=== PATIENT | male | born 1940 | race Caucasian/White ===

== ENCOUNTER 2019-02-23 05:26 | Inpatient (IN) | payer OTHER ==
[2019-02-23] MEDS ORDERED: GABAPENTIN 300 MG CAP PO ONE (05:41)
[2019-02-23] MEDS ORDERED: ACETAMINOPHEN 500 MG TAB PO ONE (05:41)
[2019-02-23] MEDS ORDERED: ceFAZolin 2 GM/DEXTROSE 100 ML IV ONE (05:41)
[2019-02-23] MEDS ORDERED: LIDOCAINE 1% 2 ML INJ ID PRN (05:43)
[2019-02-23] MEDS ORDERED: LR 1,000 ML IV ONE (05:43)
[2019-02-23] MEDS ORDERED: LIDOCAINE 1% 2 ML INJ ONE (05:54)
[2019-02-23] MEDS ORDERED: THROMBIN (BOVINE) 20,000 UNIT VIAL TP ONE (06:42)
[2019-02-23] MEDS ORDERED: BUPIVACAINE/EPI 0.25% 30 ML SDV ONE (06:42)
[2019-02-23] MEDS ORDERED: CITRATE DEXTROSE SOLN 500 ML BAG ONE (06:42)
[2019-02-23] MEDS ORDERED: BACITRACIN 50,000 UNITS/10 ML SYR IRR ONE (06:42)
[2019-02-23] MEDS ORDERED: CHLORHEXIDINE GLUC HIBICLENS 118 ML BTL TP ONE (06:42)
--- NOTE | 2019-02-23 06:50 | PDHPUP ---
History & Physical Update H&P update statement: This history and physical update is based on an assessment of the patient which was completed after admission or registration (within 24 hours), but prior to the surgery/procedure. H&P update: H&P reviewed & patient examined, no change in patient's condition since H&P completed (Consents signed and site marked. All questions answered.)
[2019-02-23] MEDS ORDERED: ALBUMIN 5% 250 ML BOTTLE IV ONE (07:03)
[2019-02-23] MEDS ORDERED: ALBUTEROL 3 ML DEYVIAL ONE (07:21)
[2019-02-23] MEDS ORDERED: DEXMEDETOMIDINE HCL 400 MCG in NS 100 ML IV SCH (07:30)
[2019-02-23] MEDS ORDERED: fentaNYL 250 MCG/5 ML INJ ONE (07:38)
[2019-02-23] MEDS ORDERED: PROPOFOL/EMULSION 500 MG/50 ML BOTTLE IV ONE ×2 (07:40→08:28)
[2019-02-23] MEDS ORDERED: MIDAZOLAM 2 MG/2 ML VIAL ONE (07:41)
[2019-02-23] MEDS ORDERED: LACTULOSE 20 GM/30 ML UDCUP PO PRN (08:11)
[2019-02-23] MEDS ORDERED: BISACODYL 10 MG SUPP PR PRN (08:11)
[2019-02-23] MEDS ORDERED: MAGNESIUM HYDROXIDE 30 ML UDCUP PO PRN (08:11)
[2019-02-23] MEDS ORDERED: diphenhydrAMINE 25 MG CAP PO PRN (08:11)
[2019-02-23] MEDS ORDERED: ONDANSETRON DISINTEGRATING 4 MG TAB PO PRN (08:11)
[2019-02-23] MEDS ORDERED: ONDANSETRON 4 MG/2 ML VIAL IVP PRN ×2 (08:11→09:12)
[2019-02-23] MEDS ORDERED: POLYETHYLENE GLYCOL 3350 17 GM PKT PO PRN (08:11)
[2019-02-23] MEDS ORDERED: ALBUTEROL 60 PUFFS/8 GM MDI IH PRN (08:15)
[2019-02-23] MEDS ORDERED: NS 1,000 ML IV SCH (08:15)
--- NOTE | 2019-02-23 08:34 | PDANEPAE ---
ANE Past Medical History - Cardiovascular History Hx Hypertension: Yes Hx Arrhythmias: No Hx Chest Pain: No Hx Coronary Artery / Peripheral Vascular Disease: No Hx CHF / Valvular Disease: No Hx Palpitations: No - Pulmonary History Hx COPD: No Hx Asthma/Reactive Airway Disease: Yes Hx Recent Upper Respiratory Infection: No Hx Oxygen in Use at Home: No Hx Sleep Apnea: No Sleep Apnea Screening Result - Last Documented: Positive Pulmonary History Comment: Asthma. 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 - Cancer History Hx Cancer: No - Congenital Disorder History Hx Congenital Disorders: No - GI History Hx Gastrointestinal Disorders: Yes Gastrointestinal History Comment: GERD. - Other Health History Other Health History: Bilateral cataract surgery. DDD lumbar spine. Osteoarthrits. Carpal tunnel syndrome. Easy bruising since on plavix. - Chronic Pain History Chronic Pain: Yes - Surgical History Prior Surgeries: R shoulder replacement 2009. L knee replacement 2008. Umbilical hernia repair ~. L carpal tunnel surgery ~. L foot nerve surgery ~ ANE Review of Systems Review of Systems: - Exercise capacity METS (RN): 4 METS ANE Patient History - Allergies Allergies/Adverse Reactions: No Known Allergies Allergy (Verified 02/12/19 10:45) - Home Medications Home Medications: Acetaminophen [Tylenol ES 500 mg (*)] 1,000 mg PO BID@09,14 02/12/19 [Last Taken 02/22/19] Acetaminophen [Tylenol ES 500 mg (*)] 500 mg PO HS 02/12/19 [Last Taken 02/21/19 ] Albuterol [Proventil Inhaler HFA (*)] 1 - 2 puffs IH Q4H PRN 02/12/19 [Last Taken 02/16/19] Atorvastatin Calcium [Lipitor 10 mg (*)] 5 mg PO DAILY 02/12/19 [Last Taken 04:15] Benazepril HCl [Lotensin (*)] 20 mg PO DAILY 02/12/19 [Last Taken 02/22/19] Clopidogrel Bisulfate [Plavix (*)] 75 mg PO DAILY 02/12/19 [Last Taken 02/14/19] Fluticasone Hfa 220 Mcg [Flovent 220 MCG Hfa MDI (*)] 1 puffs IH DAILY 02/12/19 [Last Taken 02/23/19 04:30] Gabapentin [Neurontin 300 MG (*)] 300 mg PO HS 02/12/19 [Last Taken 02/21/19] Gabapentin [Neurontin 300 MG (*)] 600 mg PO DAILY14 02/12/19 [Last Taken ] Gabapentin [Neurontin 300 MG (*)] 900 mg PO DAILY 02/12/19 [Last Taken 02/23/19 04:15] Herbals/Supplements -Info Only 1 ea PO DAILY 02/12/19 [Last Taken 02/16/19] Pantoprazole Sodium [Protonix 40mg (*)] 40 mg PO DAILY 02/12/19 [Last Taken 04:15] - NPO status NPO Since - Liquids (Date): 02/22/19 NPO Since - Liquids (Time): 22:00 NPO Since - Solids (Date): 02/22/19 NPO Since - Solids (Time): 22:00 - Smoking Hx Smoking Status: Former smoker - Family Anes Hx Family Hx Anesthesia Complications: None. ANE Labs/Vital Signs - Vital Signs Blood Pressure: 133/84 Heart Rate: 75 Respiratory Rate: 11 O2 Sat (%): 94 Height: 165.1 cm Weight: 85.275 kg ANE Physical Exam - Airway Neck exam: FROM Mallampati Score: Class 2 Mouth exam: normal dental/mouth exam - Pulmonary Pulmonary: reduced air movement, expiratory wheeze - Cardiovascular Cardiovascular: regular rate and rhythym, no murmur, rub, or gallop - ASA Status ASA Status: III ANE Anesthesia Plan Anesthesia Plan: general endotracheal anesthesia Lines/Monitors: arterial line, additional IV Total IV Anesthesia: Yes
--- NOTE | 2019-02-23 08:34 | CPEKG ---
Test Reason : OPEN Blood Pressure : / mmHG Vent. Rate : 065 BPM Atrial Rate : 065 BPM P-R Int : 190 ms QRS Dur : 085 ms QT Int : 395 ms P-R-T Axes : 074 053 120 degrees QTc Int : 411 ms Sinus rhythm Nonspecific T abnormalities, lateral leads Confirmed by Artie Guthrie ([id number]) on 02/23/2019 8:33:18 AM Referred By: Lei Salgado Confirmed By:Artie Guthrie
[2019-02-23] MEDS ORDERED: LIDOCAINE 2% 5 ML SDV ONE (08:55)
[2019-02-23] MEDS ORDERED: SUCCINYLCHOLINE CHLORIDE 200 MG/10 ML SYR IVP ONE (08:55)
[2019-02-23] MEDS ORDERED: PHENYLEPHRINE HCL 100 MCG/ML SYR ONE (08:55)
[2019-02-23] MEDS ORDERED: ROCURONIUM 50 MG/5 ML VIAL ONE (08:55)
[2019-02-23] MEDS ORDERED: RANITIDINE 50 MG/2 ML VIAL ONE (08:56)
[2019-02-23] MEDS ORDERED: DEXAMETHASONE 4 MG/ML VIAL ONE (08:56)
[2019-02-23] MEDS ORDERED: BENAZEPRIL HCL 20 MG TAB PO SCH (09:00)
[2019-02-23] MEDS ORDERED: NALOXONE HCL 0.4 MG/ML INJ IVP PRN ×2 (09:12→12:38)
[2019-02-23] MEDS ORDERED: DIAZEPAM 10 MG/2 ML SYR IVP PRN (09:12)
[2019-02-23] MEDS ORDERED: ALBUTEROL 3 ML DEYVIAL IH PRN (09:12)
[2019-02-23] MEDS ORDERED: fentaNYL 100 MCG/2 ML INJ IVP PRN (09:12)
[2019-02-23] MEDS ORDERED: DEXAMETHASONE 4 MG/ML VIAL IVP PRN (09:12)
[2019-02-23] MEDS ORDERED: LR 500 ML IV PRN (09:12)
[2019-02-23] MEDS ORDERED: ePHEDrine SULFATE 25 MG/5 ML SYR ONE (09:31)
[2019-02-23] MEDS ORDERED: morphINE PF 5 MG/10 ML INJ IT ONE (10:07)
--- NOTE | 2019-02-23 11:48 | PDMN ---
Medical Necessity Medical necessity: [facility] [place] S820 lumbar fusion - INPT only list OP: L4/S1 TLIF #[id number] FOR CPT [id number]. [facility] [place] [id number].
[2019-02-23] MEDS ORDERED: SUGAMMADEX SODIUM 200 MG/2 ML VIAL IVP ONE (12:09)
--- NOTE | 2019-02-23 12:43 | POSTOPPROG ---
Post Op Note Date of Operation: 02/23/19 Surgeon: Lei Salgado Cook Fish Eggs: Danyelle Batres NP Anesthesiologist: Dr Hurley Anesthesia: GET(General Endotracheal) Pre-op Diagnosis: Lumbar stenosis Procedure: L4-5, L5-S1 TLIF Inf/Abcess present in the surg proc area at time of surgery?: No Depth: Deep Incisional (Fascial) EBL: 100-500 Total fluids administered: see anesthesia Complications: none Bowel Protocol: N/A Clean Closure Performed: N/A Drains: Yves Suarez Date of Surgery: 02/23/19 Post Op Day: 0 Assessment/Plan: Assessment: 78 yr old M s/p L4-5, L5-S1 TLIF Plan: -Admit Med surg -Pain management, patient received IT Duramorph intra op -Post op xrays pending for later today vs in am -PT/OT -Brace on when out of bed, patient has brace -MAURICIO to bulb suction Please call neurosurgery with questions/concerns Subjective: waking up in PACU Objective: waking up in pacu MAEx4 No facial droop 5/5 BLE Sensation intact to light touch BLE Dressing CDI MAURICIO patent Appropriate Neuro Check Frequency Ordered: Yes
--- NOTE | 2019-02-23 13:22 | GOP ---
[f rep st] OPERATIVE REPORT DATE OF OPERATION: 02/23/2019 SURGEON: Lei Salgado MD INTERNET SPECIALIST: Danyelle Batres NP ANESTHESIA: General. PREOPERATIVE DIAGNOSIS: 1. 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 2. Low back pain. 3. Lower extremity radiculopathy. 4. Treatment refractory to nonoperative intervention. POSTOPERATIVE DIAGNOSIS: 1. 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 2. Low back pain. 3. Lower extremity radiculopathy. 4. Treatment refractory to nonoperative intervention. PROCEDURE PERFORMED: 1. Posterior arthrodesis with approach to L4, L5, and S1. 2. Posterolateral fusion with bilateral pedicle screw placement at L4, L5, S1 from [employer] FX[employer] 4.75 System. 3. Decompressive laminectomy with bilateral medial facetectomies, L4-L5, L5-S1. 4. Left-sided L4-5 facetectomy, diskectomy and interbody fusion using 8 x 28 mm titanium PEEK ELEVATE cage filled with morselized autograft and allograft. 5. Left-sided L5-S1 facetectomy, diskectomy and interbody fusion using 9 x 28 mm titanium PEEK ELEVATE cage filled with morselized autograft and allograft. 6. Posterolateral fusion on the right between L4 and S1, with morselized autograft and allograft. 7. L4-L5 epidural synovial cyst resection. 8. Use of intraoperative 3D Stealth navigation. 9. Use of intraoperative fluoroscopy, less than 1 hour physician time. 10. Use of neuromonitoring. 11. Use of operative microscope. 12. Injection of preservative-free intrathecal narcotics. FINDINGS: per imaging SPECIMENS: None. ESTIMATED BLOOD LOSS: 200 mL of which 135 was given back via the Cell Saver. INDICATIONS: The patient is a very pleasant 78-year-old gentleman unfortunately suffering from low back pain with lower extremity radiculopathy and claudication. Imaging was consistent with spondylosis L4 through S1 with severe spinal stenosis, L4-5 and L5-S1 with a synovial cyst. After discussion of risks, benefits, and treatment alternatives and after failing nonoperative management, we decided to proceed forth with surgery as described above. DESCRIPTION OF PROCEDURE: The patient was brought to the operating theater and underwent general endotracheal anesthesia without complications. He had Venodynes, NELLY hose, and appropriate lines placed by Anesthesia. He was then flipped prone on a Yves table, and all bony prominences inspected and padded. The lower lumbar region was then prepped and draped in the usual sterile surgical fashion. A time-out was completed, per protocol, and the patient received antibiotics within 1 hour of incision. Using lateral fluoroscopy and a spinal needle, we then picked our entry point to the L4 through S1 levels. This was marked in the midline. The incision was infiltrated with Marcaine with epinephrine. The incision was taken down with the scalpel blade. Using monopolar, the incision then taken down the midline through the lumbodorsal fascia, and a subperiosteal dissection carried out to the transverse process of L4, L5, and S1. Care was taken to preserve the bilateral L3-4 facet joint. Deep retractors were placed to maintain our exposure. We confirmed our level using lateral fluoroscopy. We attached the 3D Stealth navigation clamp to the spinous process of L4, and completed a 3D Stealth navigation spin. Using 3D Stealth navigation, we then picked our entry point to the L4, L5 and S1 levels. All holes were drilled and palpated with no evidence of any cortical breaches. We then tapped and placed 6.5 x 50 mm screws bilaterally at L4 and L5, and 6.5 x 55 mm screws bilaterally in S1 from the [employer] 4.75 System. Another 3D Stealth navigation spin demonstrated good placement of the hardware. We brought the microscope into the field to assist with microscopic dissection and to maintain illumination and magnification. Using a combination of the bur tip on the drill bit, Kerrison punches and Leksell rongeur completed a decompressive laminectomy at L4-L5 and L5-S1 with resection of epidural synovial cyst at L4-5. We then completed aggressive facetectomies on the left side between L4-L5 and L5-S1. We distracted the L4-5 disk space and completed a left-sided L4-5 diskectomy. We prepared the cartilaginous endplates and measured the interbody space. We then placed an 8 x 28 mm titanium PEEK Elevate cage filled with morselized autograft and allograft anteriorly and towards the midline. We packed additional morcellized autograft in the disk space for the interbody fusion. We let down the L4-L5 distractionand moved down to L5-S1 and distracted the interspace, and completed left-sided L5-S1 diskectomy. We prepared the cartilaginous endplates and measured the interbody space. We placed a 9 x 28 mm titanium PEEK Elevate cage filled with morselized autograft and allograft anteriorly and toward the midline. We packed additional morcellized autograft in the disk space for the interbody fusion. We then let down the distraction and decorticated the bone on the right side between L4 and S1. The wound was irrigated copiously with bacitracin irrigation. We placed 2 lordotic rods into the heads of the screws between L4 and S1 and secured them down with cap screws, which were then tightened per the pad tufter's setting. We placed morselized autograft and allograft on the right side between L4 and S1 for posterolateral fusion. We injected preservative-free intrathecal narcotics. A drain was left in the subfascial space. The wound was then closed in multiple layers using running Vicryl sutures for the deep layers and Dermabond for the skin. The patient's wounds were dressed sterilely. He was then flipped supine onto the transfer cart, where he was awakened, extubated, and taken to the recovery room in stable condition. There were no complications, and no noted changes on neuromonitoring throughout the procedure. COMPLICATIONS: None. /[id number]/MODL MTDD
[2019-02-23] MEDS ORDERED: fentaNYL 100 MCG/2 ML INJ ONE (13:23)
[2019-02-23] MEDS: FLUTICASONE HFA 220 MCG MDI IH SCH (14:38)
[2019-02-23] MEDS: ACETAMINOPHEN 500 MG TAB PO SCH ×2 (15:06→20:32)
[2019-02-23] MEDS: BENAZEPRIL HCL 20 MG TAB PO SCH (15:06)
[2019-02-23] MEDS: GABAPENTIN 300 MG CAP PO SCH ×2 (15:06→20:32)
[2019-02-23] MEDS: ceFAZolin 2 GM/DEXTROSE 100 ML IV SCH ×2 (15:07→20:34)
[2019-02-23] MEDS: METHOCARBAMOL 750 MG TAB PO SCH ×2 (15:09→17:58)
[2019-02-23] MEDS: PANTOPRAZOLE SODIUM 40 MG TAB PO SCH (15:09)
[2019-02-23] MEDS: ATORVASTATIN CALCIUM 10 MG TAB PO SCH (15:09)
[2019-02-23] MEDS: FAMOTIDINE 20 MG TAB PO SCH ×2 (15:09→20:31)
[2019-02-23] MEDS: SENNOSIDES/DOCUSATE SODIUM TAB PO SCH ×2 (15:09→20:31)
--- NOTE | 2019-02-23 15:44 | POSTANESTH ---
Post Anesthetic Evaluation Cardiovascular Status: Normal, Stable, Similar to Pre-Op Cond Respiratory Status: Normal, Stable, Similar to Pre-op Cond. Level of Consciousness/Mental Status: Can Participate in Eval Pain Control: Adequate, Prn Tx Ordered Nausea/Vomiting Control: Adequate, Prn Tx Ordered Complications Possibly Related to Anesthesia: None Noted
[2019-02-24] MEDS: METHOCARBAMOL 750 MG TAB PO SCH ×5 (00:08→23:45)
[2019-02-24 05:20] LABS: PLATELET COUNT 244 10^3/uL (150-400)
[2019-02-24] MEDS: GABAPENTIN 300 MG CAP PO SCH ×3 (05:28→22:18)
[2019-02-24] MEDS ORDERED: GABAPENTIN 300 MG CAP PO SCH ×2 (06:00→14:00)
[2019-02-24] MEDS: ACETAMINOPHEN 500 MG TAB PO SCH ×3 (06:14→22:14)
--- NOTE | 2019-02-24 07:31 | NEUSURGPN ---
Date of Surgery: 02/23/19 Post Op Day: 1 Assessment/Plan: Assessment: 78 yr old male s/p L4-5, L5-S1 TLIF POD #1 Plan: -s/p L4-S1 TLIF: pt with expected lower back pain/BLE complaints better -continue with Med/Surg -continue with current pain management, patient received IT Duramorph intra op -post op xrays pending for this am -PT/OT-pending -brace on when out of bed, patient has brace -MAURICIO to bulb suction -pt understands and agrees -please call neurosurgery with questions/concerns Subjective: Awake and alert. NAD. Eating/drinking and voiding. No new events overnight Objective: AAO x 3, PERRLA/EOMI no droop 5/5 BLE Sensation intact to light touch BLE Dressing CDI MAURICIO patent/working well Neuro Check Frequency: per routine Urinary Catheter in Place: No Catheter Insertion Date: 02/23/19 - Physician Discussed Patient with : Damian Patient Seen by .: Damian Neurosurgery Physical Exam - Vitals, I&O, Labs I and O 02/23/19 02/24/19 02/25/19 05:59 05:59 05:59 Intake Total 4000 Output Total 3270 Balance 730 Weight 85.275 kg Intake: Oral (ml) 1720 IV Intake (ml) 2180 IV Infused (ml) 100 ceFAZolin 2 GM/DEXTROSE 100 100 ml @ 200 mls/hr IV ONCALL ONE Rx#:[id number] Output: Urine (ml) 2600 Catheter 2600 Estimated Blood Loss (ml) 250 MAURICIO Drain Output (ml) 420 Posterior Back Yves 420 Suarez Vital Signs Temp Pulse Resp BP Pulse Ox 36.4 C 65 16 130/71 H 94 02/24/19 05:39 02/24/19 05:39 02/24/19 05:39 02/24/19 05:39 02/24/19 05:39 Laboratory Results 02/24/19 04:32 02/24/19 04:32 ICD10 Worksheet Patient Problems: Problems Problem Status Onset Lumbar radicular pain Acute Lumbar stenosis Acute - ICD10 Problem Qualifiers (1) Lumbar stenosis (2) Lumbar radicular pain
[2019-02-24] MEDS ORDERED: GABAPENTIN 300 MG CAP PO ONE (08:00)
[2019-02-24] MEDS: ATORVASTATIN CALCIUM 10 MG TAB PO SCH (08:45)
[2019-02-24] MEDS: SENNOSIDES/DOCUSATE SODIUM TAB PO SCH (08:45)
[2019-02-24] MEDS: FAMOTIDINE 20 MG TAB PO SCH ×2 (08:45→22:16)
[2019-02-24] MEDS: PANTOPRAZOLE SODIUM 40 MG TAB PO SCH (08:45)
[2019-02-24] MEDS: BENAZEPRIL HCL 20 MG TAB PO SCH (08:45)
[2019-02-24] MEDS: oxyCODONE IR 5 MG TAB PO PRN ×4 (08:46→22:15)
[2019-02-24] MEDS: ENOXAPARIN 40 MG/0.4 ML SYR SC SCH (08:46)
[2019-02-24] MEDS: FLUTICASONE HFA 220 MCG MDI IH SCH (08:51)
--- NOTE | 2019-02-24 14:46 | ASMTCMCOM ---
CM Note CM Note Notes: Pt had planned surgery for lumbar stenosis. PT rec home/outpatient, OT rec home/home care. Pt declines home care, reporting he feels safe to d/c home with support of and neighbor who works for a home care agency. Pt has all DME. Anticipate pt will d/c when medically stable. No CM d/c needs identified. CM available for changes/needs. D/c plan of care: Home with support. Date Signed: 02/24/2019 02:45 PM Electronically Signed By:TREY Jean
[2019-02-25] MEDS: SENNOSIDES/DOCUSATE SODIUM TAB PO SCH ×3 (00:17→21:29)
[2019-02-25] MEDS: METHOCARBAMOL 750 MG TAB PO SCH ×4 (05:35→23:09)
[2019-02-25] MEDS: ACETAMINOPHEN 500 MG TAB PO SCH ×3 (05:36→23:07)
[2019-02-25] MEDS: GABAPENTIN 300 MG CAP PO SCH ×3 (05:36→21:28)
[2019-02-25] MEDS: oxyCODONE IR 5 MG TAB PO PRN ×5 (05:40→23:09)
--- NOTE | 2019-02-25 08:01 | NEUSURGPN ---
Date of Surgery: 02/23/19 Post Op Day: 2 Assessment/Plan: Assessment: 78 yr old male s/p L4-5, L5-S1 TLIF POD #2 Plan: -s/p L4-S1 TLIF: pt with expected lower back pain/BLE complaints better -continue with current pain management, may try ice to incision area -post op xrays show stable hardware placement -PT/OT -brace on when out of bed -MAURICIO to bulb suction, 265ml output. Will leave for now -please call neurosurgery with questions/concerns Subjective: Sitting in chair, expected back pain Objective: AxOx4 MAEx4 5/5 BLE Sensation intact to light touch BLE MAURICIO patent Dressing/incision CDI Neuro Check Frequency: per routine Urinary Catheter in Place: No Catheter Insertion Date: 02/23/19 - Physician Discussed Patient with : Damian Neurosurgery Physical Exam - Vitals, I&O, Labs I and O 02/24/19 02/25/19 02/26/19 05:59 05:59 05:59 Intake Total 4000 3400 Output Total 3270 860 Balance 730 2540 Weight 85.275 kg Intake: Oral (ml) 1720 3400 IV Intake (ml) 2180 IV Infused (ml) 100 ceFAZolin 2 GM/DEXTROSE 100 100 ml @ 200 mls/hr IV ONCALL ONE Rx#:[id number] Output: Urine (ml) 2600 600 Catheter 2600 Toilet 200 Urinal 400 Estimated Blood Loss (ml) 250 MAURICIO Drain Output (ml) 420 260 Posterior Back Yves 420 260 Suarez Other: Number of Voids Toilet 1 Number of Stools Toilet 1 Vital Signs Temp Pulse Resp BP Pulse Ox 36.6 C 71 16 110/85 H 93 02/25/19 07:51 02/25/19 07:51 02/25/19 07:51 02/25/19 07:51 02/25/19 07:51 Laboratory Results 02/24/19 04:32 02/24/19 04:32 ICD10 Worksheet Patient Problems: Problems Problem Status Onset Lumbar radicular pain Acute Lumbar stenosis Acute
[2019-02-25] MEDS: ATORVASTATIN CALCIUM 10 MG TAB PO SCH (10:26)
[2019-02-25] MEDS: ENOXAPARIN 40 MG/0.4 ML SYR SC SCH (10:33)
[2019-02-25] MEDS: BENAZEPRIL HCL 20 MG TAB PO SCH (10:33)
[2019-02-25] MEDS: FAMOTIDINE 20 MG TAB PO SCH ×2 (10:33→21:27)
[2019-02-25] MEDS: PANTOPRAZOLE SODIUM 40 MG TAB PO SCH (10:33)
[2019-02-25] MEDS: FLUTICASONE HFA 220 MCG MDI IH SCH (10:34)
[2019-02-26] MEDS: ACETAMINOPHEN 500 MG TAB PO SCH (05:57)
[2019-02-26] MEDS: METHOCARBAMOL 750 MG TAB PO SCH ×2 (05:58→11:34)
[2019-02-26] MEDS: GABAPENTIN 300 MG CAP PO SCH (05:58)
[2019-02-26] MEDS: oxyCODONE IR 5 MG TAB PO PRN ×2 (06:01→11:34)
[2019-02-26 07:54] VITALS: BP 106/89
--- NOTE | 2019-02-26 08:31 | NEUSURGPN ---
Date of Surgery: 02/23/19 Post Op Day: 3 Assessment/Plan: 78 yr old male s/p L4-5, L5-S1 TLIF POD #3 Plan: -pain controlled -post op xrays show stable hardware placement -PT/OT -brace on when out of bed -MAURICIO drain remove today -discharge to home today -please call neurosurgery with questions/concerns Discussed with Dr. Salgado. Subjective: Having pain at the surgical site. No lower extremity symptoms. Sitting in bedside chair. Objective: Awake. Alert. PERRL. EOMI Facial expression symmetrical Muscle strength full at 5/5 Sensation intact Catheter Insertion Date: 02/23/19 - Physician Discussed Patient with Dr.: Salgado Neurosurgery Physical Exam - Vitals, I&O, Labs I and O 02/25/19 02/26/19 02/27/19 05:59 05:59 05:59 Intake Total 3400 600 Output Total 860 580 100 Balance 2540 20 -100 Intake: Oral (ml) 3400 600 Output: Urine (ml) 600 500 100 Incontinence 200 Toilet 200 Urinal 400 300 100 MAURICIO Drain Output (ml) 260 80 Posterior Back Yves 260 80 Suarez Other: Number of Voids Incontinence 1 Toilet 1 1 Urinal 1 Number of Stools Toilet 1 Vital Signs Temp Pulse Resp BP Pulse Ox 37.3 C 90 18 106/89 H 89 L 02/26/19 07:50 02/26/19 07:50 02/26/19 07:50 02/26/19 07:50 02/26/19 07:50 Laboratory Results 02/24/19 04:32 02/24/19 04:32 ICD10 Worksheet Patient Problems: Problems Problem Status Onset Lumbar radicular pain Acute Lumbar stenosis Acute
[2019-02-26] MEDS: ATORVASTATIN CALCIUM 10 MG TAB PO SCH (08:51)
[2019-02-26] MEDS: FAMOTIDINE 20 MG TAB PO SCH (08:51)
[2019-02-26] MEDS: PANTOPRAZOLE SODIUM 40 MG TAB PO SCH (08:51)
[2019-02-26] MEDS: ENOXAPARIN 40 MG/0.4 ML SYR SC SCH (08:52)
[2019-02-26] MEDS: BENAZEPRIL HCL 20 MG TAB PO SCH (08:52)
[2019-02-26] MEDS: FLUTICASONE HFA 220 MCG MDI IH SCH (08:52)
--- NOTE | 2019-02-26 09:44 | ASMTLACE ---
LACE Length of stay for Answers: 4-6 days current admission Acuity / Level of Answers: Yes Care: Did the patient have an inpatient admission? Comorbidities - select Answers: Cerebrovascular disease all that apply (CVA, TIA, aneurysms, vasc ular dementia) Coronary Artery Disease Opioid dependence / Chronic pain Other Notes: HTN # of Emergency department Answers: 0 visits in the last 6 months Score: 15 Date Signed: 02/26/2019 09:43 AM Electronically Signed By:TREY Jean
[2019-02-26] MEDS: SENNOSIDES/DOCUSATE SODIUM TAB PO SCH (10:54)
[2019-03-14] MEDS ORDERED: fentaNYL 250 MCG/5 ML INJ ONE (10:31)
== END 2019-02-26 11:55 | disposition home or self-care (01) | DRG 455 ==
LOC: F3N 05:26
PROVIDERS: ADMIT Neurological Surgery; ATTEND Neurological Surgery
PROC: 00NY0ZZ Release Lumbar Spinal Cord, Open Approach (ICD-10-PCS; principal; 2019-02-23 07:15)
PROC: 0MBD0ZZ Excision of Lower Spine Bursa and Ligament, Open Approach (ICD-10-PCS; principal; 2019-02-23 07:15)
PROC: 0SG00AJ Fusion of Lumbar Vertebral Joint with Interbody Fusion Device, Posterior Approach, Anterior Column, Open Approach (ICD-10-PCS; principal; 2019-02-23 07:15)
PROC: 0SG3071 Fusion of Lumbosacral Joint with Autologous Tissue Substitute, Posterior Approach, Posterior Column, Open Approach (ICD-10-PCS; principal; 2019-02-23 07:15)
PROC: 8E0WXBF Computer Assisted Procedure of Trunk Region, With Fluoroscopy (ICD-10-PCS; principal; 2019-02-23 07:15)
PROC: 4A1004G Monitoring of Central Nervous Electrical Activity, Intraoperative, Open Approach (ICD-10-PCS; principal; 2019-02-23 07:15)
PROC: 0SG30AJ Fusion of Lumbosacral Joint with Interbody Fusion Device, Posterior Approach, Anterior Column, Open Approach (ICD-10-PCS; principal; 2019-02-23 07:15)
PROC: 0SG0071 Fusion of Lumbar Vertebral Joint with Autologous Tissue Substitute, Posterior Approach, Posterior Column, Open Approach (ICD-10-PCS; principal; 2019-02-23 07:15)
DX: M48.062 Spinal stenosis, lumbar region with neurogenic claudication (principal); M47.26 Other spondylosis with radiculopathy, lumbar region; M47.27 Other spondylosis with radiculopathy, lumbosacral region; M71.38 Other bursal cyst, other site; I10 Essential (primary) hypertension; G47.30 Sleep apnea, unspecified; J45.909 Unspecified asthma, uncomplicated; K21.9 Gastro-esophageal reflux disease without esophagitis; Z96.611 Presence of right artificial shoulder joint; Z96.652 Presence of left artificial knee joint; Z87.891 Personal history of nicotine dependence
CPT/HCPCS: 97116-GP; 97161-GP; 97166-GO; 97530-GP; 97535-GO; C1713; J0330; J0690; J1100; J1650; J2250; J2274; J2370; J2704; J2780; J3010; J7613; P9041